=== PATIENT | female | born 1990 ===

== ENCOUNTER 2017-08-31 08:47 | Emergency (ER) | payer SELFPAY ==
--- NOTE | 2017-08-31 11:13 | ULT ---
ULTRASOUND PELVIC ULTRASOUND TRANSVAGINAL DOPPLER DUPLEX: 08/31/2017 HISTORY: Confirm intrauterine in a 27-year-old female. TECHNIQUE: Transabdominal transducer used to evaluate intrapelvic contents using the urinary bladder as an acous tic window. Endovaginal transducer used to visualize intrapelvic contents in greater detail. Color fl ow Doppler and Pulsed Doppler spectral waveform analysis of ovaries. FINDINGS: There is an intrauterine gestational sac that measures approximately 3.6 x 2.9 x 3.8 cm, with mean sa c diameter of 3.8 cm, corresponding to 9 weeks 1 day (+/- 12 days) gestational age. It contains a fe smita pole with crown-rump length of 2.3 cm, corresponding to 9 weeks 0 days (+/- 6 days). heart rate is 171 bpm. There is no subchorionic hemorrhage. No free fluid in the cul-de-sac. Bilateral ovaries are normal in size, with demonstration of blood flow by Doppler. There is an approx imately 1 x 0.5 cm common follicle in the right ovary. No ovarian cyst 2 cm or larger. IMPRESSION: Live first trimester intrauterine gestation confirmed, estimated to be 9 weeks 0 days (+/- 6 days) ge stational age. JOE Mitchell POS: MARYURI
[2017-08-31 11:34] LABS: Bilirubin Negative (Negative); Blood, Urine Negative (Negative); Glucose, Urine (Dipstick) Negative (Negative); Ketone, Urine Negative (Negative); Nitrite Negative (Negative); Protein, Urine (Dipstick) Negative (Neg-Trace); Urobilinogen 0.2 mg/dL (0.2-1.0)
[2017-08-31 11:36] LABS: Bacteria/HPF Rare-Few HPF (None Seen); Hyaline Casts/LPF 0-3 HYALINE CAST LPF (0-3 Hyaline); RBC/HPF 0-3 HPF (0-3)
== END 2017-08-31 11:54 | disposition home or self-care (01) ==
LOC: ERS 08:47
DX: O99.511 Diseases of the respiratory system complicating pregnancy, first trimester (principal); J06.9 Acute upper respiratory infection, unspecified; Z3A.09 9 weeks gestation of pregnancy
CPT/HCPCS: 36415; 76856; 81003; 81015; 84702; 87081; 87430